=== PATIENT | male | born 1940 | race Caucasian/White ===

== ENCOUNTER → 2024-01-01 07:43 | Outpatient (REF) | payer OTHER, SELFPAY | LOC: DHVS 07:43 | PROVIDERS: ATTENDING PHYSICIAN Surgery Vascular Surgery; FAMILY PHYSICIAN Internal Medicine | DX: I73.9 Peripheral vascular disease, unspecified (principal) | CPT/HCPCS: 93922; 93925 ==

== ENCOUNTER → 2025-01-13 07:16 | Outpatient (REF) | payer OTHER, SELFPAY | LOC: DHVS 07:16 | PROVIDERS: ATTENDING PHYSICIAN Surgery Vascular Surgery; FAMILY PHYSICIAN Internal Medicine | DX: I73.9 Peripheral vascular disease, unspecified (principal) | CPT/HCPCS: 93922; 93925 ==